=== PATIENT | female | born 1995 | race African-American/Black ===

== ENCOUNTER 2021-08-11 05:33 | Inpatient (IN) | payer OTHER ==
[2021-08-11] VITALS (17 sets, daily range): BP systolic 105–147; BP diastolic 50–86; PULSE 72–100; TEMP 97.7–98.3
[~2021-08-11] VITALS: Ht 165.2 cm; Wt 111.8 kg
--- NOTE | 2021-08-11 05:45 | NUR ---
0545 TO 213 FOR SCHEDULED REPEAT C/S THIS AM. EFM ON. PERMITS SIGNED. IV STARTED AND LAB OBTAINED.
[2021-08-11] MEDS ORDERED: PRENATAL TABLET PO (06:23)
[2021-08-11 06:38] LABS: HEMATOCRIT 30.5 % (37.0-47.0); HEMOGLOBIN 9.8 g/dl (12.5-16.0); MEAN CELL VOLUME 80 fl (80.0-100.0); MEAN CORPUSCULAR HEMOGLOBIN 26 pg (27.0-31.0); MEAN CORPUSCULAR HGB CONC 32 g/dl (33.0-37.0); MEAN PLATELET VOLUME 10.6 fl (7.4-10.4); PLATELET COUNT 226 K/mm3 (130-400); RED BLOOD COUNT 3.83 M/mm3 (4.10-5.30); REDCELL DISTRIBUTION WIDTH-CV 15.6 % (11.5-14.5)
[2021-08-11 06:54] LABS: BAND 1 % (0-10); LYMPHOCYTE 27 % (20.0-51.0); METAMYELOCYTE 2 % (0-0); NEUTROPHILS 64 % (42.0-75.2)
[2021-08-11 06:55] LABS: ANISOCYTOSIS 1+; OVALOCYTES 1+; PLATELET ESTIMATE NORMAL (NORMAL); POIKILOCYTOSIS 1+
[2021-08-11 06:56] LABS: HYPOCHROMIA 1+
[2021-08-12 00:15] VITALS: BP 115/57; PULSE 85; TEMP 97.9
[2021-08-12 05:05] VITALS: BP 131/71; PULSE 88; TEMP 98.1
[2021-08-12 07:13] LABS: HEMATOCRIT 29.3 % (37.0-47.0); HEMOGLOBIN 9.2 g/dl (12.5-16.0)
[2021-08-12 08:30] VITALS: BP 127/80; PULSE 88; TEMP 97.6
--- NOTE | 2021-08-12 09:38 | NUR ---
Initial visit; Patient thanked [employer] for offering congratulations and God's blessings fort the of their daughter. [employer] thanked family for choosing our hospital.
[2021-08-12 17:10] VITALS: BP 126/59; PULSE 92; TEMP 98.2
[2021-08-12 18:30] VITALS: BP 124/61; PULSE 88; TEMP 98.6
[2021-08-13 08:13] VITALS: BP 124/76; PULSE 78; TEMP 98.2
[2021-08-13] MEDS ORDERED: FERRO-TIME325 MG PO (08:15)
[2021-08-13] MEDS ORDERED: PERCOCET 325 MG1 TA2 PO (08:16)
[2021-08-13] MEDS ORDERED: IBU600 MG PO (08:16)
== END 2021-08-13 12:27 | disposition home or self-care (01) | DRG 788 ==
LOC: OB 05:33
PROVIDERS: ADMIT Obstetrics & Gynecology
PROC: 10D00Z1 Extraction of Products of Conception, Low, Open Approach (ICD-10-PCS; principal; 2021-08-11)
DX: O34.211 Maternal care for low transverse scar from previous cesarean delivery (principal); O99.214 Obesity complicating childbirth; E66.9 Obesity, unspecified; O99.02 Anemia complicating childbirth; D64.9 Anemia, unspecified; Z3A.39 39 weeks gestation of pregnancy; Z37.0 Single live birth; K21.9 Gastro-esophageal reflux disease without esophagitis; O75.89 Other specified complications of labor and delivery
CPT/HCPCS: J0171; J0690; J1885; J2175; J2250; J2370; J2405; J2590; J2791; J3010; J7120